=== PATIENT | female | born 1955 | race Caucasian/White ===

== ENCOUNTER → 2017-10-27 | Outpatient (CLI) | payer BC, OTHER | LOC: CFH 08:05 | PROVIDERS: ATTEND Nurse Practitioner Primary Care | DX: Z13.220 Encounter for screening for lipoid disorders (principal); Z12.39 Encounter for other screening for malignant neoplasm of breast; Z12.11 Encounter for screening for malignant neoplasm of colon; R05 Cough; M19.90 Unspecified osteoarthritis, unspecified site; M54.2 Cervicalgia; M54.5 Low back pain; R00.2 Palpitations; E78.5 Hyperlipidemia, unspecified; I10 Essential (primary) hypertension; K21.9 Gastro-esophageal reflux disease without esophagitis; R42 Dizziness and giddiness; R60.9 Edema, unspecified; F41.9 Anxiety disorder, unspecified; J06.0 Acute laryngopharyngitis | CPT/HCPCS: 71046 ==

== ENCOUNTER → 2017-11-28 | Outpatient (CLI) | payer BC | LOC: CFH 14:33 | PROVIDERS: ATTEND Internal Medicine | DX: J84.10 Pulmonary fibrosis, unspecified (principal); R05 Cough; M19.90 Unspecified osteoarthritis, unspecified site; M54.2 Cervicalgia; M54.5 Low back pain; R00.2 Palpitations; E78.5 Hyperlipidemia, unspecified; I10 Essential (primary) hypertension; K21.9 Gastro-esophageal reflux disease without esophagitis; R42 Dizziness and giddiness; R60.9 Edema, unspecified; F41.9 Anxiety disorder, unspecified; Z91.018 Allergy to other foods | CPT/HCPCS: 71250 ==

== ENCOUNTER → 2018-03-16 | Outpatient (CLI) | payer BC | END | disposition home or self-care (01) | LOC: CFH 09:29 | PROVIDERS: ATTEND Nurse Practitioner Primary Care | DX: I10 Essential (primary) hypertension (principal); K21.9 Gastro-esophageal reflux disease without esophagitis; R00.2 Palpitations; E78.5 Hyperlipidemia, unspecified; R53.83 Other fatigue; R59.0 Localized enlarged lymph nodes; Z79.899 Other long term (current) drug therapy | CPT/HCPCS: 76536 ==